=== PATIENT | female | born 1995 | race Caucasian/White ===

== ENCOUNTER 2021-04-24 09:31 | Emergency (ER) | payer OTHER ==
[2021-04-24] MEDS ORDERED: Acetaminophen 500 MG TAB ONE (10:33)
[2021-04-24] MEDS ORDERED: Dexamethasone 10 MG/ML VIAL ONE (10:33)
[2021-04-24 17:15] LABS: SARS-CoV-2 PCR by NAA Not Detected (NotDetected)
== END 2021-04-24 11:38 | disposition home or self-care (01) ==
LOC: ERS 09:31
DX: J02.9 Acute pharyngitis, unspecified (principal); J04.0 Acute laryngitis; M79.10 Myalgia, unspecified site; I48.92 Unspecified atrial flutter; Z20.822 Contact with and (suspected) exposure to COVID-19; Z79.899 Other long term (current) drug therapy
CPT/HCPCS: 87081; 87430; 96372; 99283; J1100; U0003; U0005

== ENCOUNTER 2021-07-11 13:52 | Emergency (ER) | payer OTHER ==
[2021-07-11] MEDS ORDERED: Acetaminophen 500 MG TAB ONE (16:18)
[2021-07-11] MEDS ORDERED: Ibuprofen 800 MG TAB ONE (16:18)
[2021-07-12 15:22] LABS: SARS-CoV-2 PCR by NAA DETECTED (NotDetected)
== END 2021-07-11 16:33 | disposition home or self-care (01) ==
LOC: ERS 13:52
DX: U07.1 COVID-19 (principal); F17.200 Nicotine dependence, unspecified, uncomplicated
CPT/HCPCS: 93005; U0003; U0005

== ENCOUNTER 2021-11-15 07:26 | Emergency (ER) | payer OTHER ==
[2021-11-15] MEDS ORDERED: Ondansetron PF 4 MG/2 ML Vial ONE (08:01)
[2021-11-15] MEDS ORDERED: Morphine 4 MG/ML VIAL ONE ×2 (08:01→09:17)
[2021-11-15 08:07] LABS: Bilirubin Negative (Negative); Blood, Urine Negative (Negative); Glucose, Urine (Dipstick) Negative (Negative); Ketone, Urine Negative (Negative); Leukocyte Negative (Negative); Nitrite Negative (Negative); Protein, Urine (Dipstick) Negative (Neg-Trace); Specific Gravity, Urine 1.025 (1.005-1.030); Urobilinogen 0.2 mg/dL (Less than 2)
[2021-11-15 08:08] LABS: Clarity Clear (Clear)
[2021-11-15 08:08] LABS: #Eosinphils 0.2 thou/uL (0.0-0.7); #Lymphocytes 1.9 thou/uL (1.20-3.40); #Monocytes 0.5 thou/uL (0.11-0.59); %Basophils 0.3 % (0.0-1.0); %Eosinophils 1.4 % (0.0-10.0); %Lymphocytes 16.1 % (21.0-51.0); %Neutrophils 78.2 % (42.0-75.0); Mean Corpuscular HGB CONC 32.2 g/dL (32.0-36.0); Mean Corpuscular Hemoglobin 27.1 pg (27.0-31.0); Mean Platelet Volume 8.4 fL (7.4-10.4); Platelet Count 289 thou/uL (130-400); RBC Distribution Width 13.2 % (11.5-14.5); Red Blood Cell (RBC) Count 5.18 mill/uL (4.20-5.40); White Blood Cell (WBC) Count 11.5 thou/uL (4.8-10.8)
[2021-11-15 08:09] LABS: Pregnancy Test - Urine (BHCG) Negative (Negative); Pregu Control Background? CLEAR/WHITE (CLR/WHITE); Pregu Control Bar Appear? YES (CONTROL BAR); Specific Gravity 1.025 (1.002-1.036)
[2021-11-15 08:27] LABS: ALT (SGPT) 17 U/L (8-55); AST (SGOT) 11 U/L (5-34); Alkaline Phosphatase 77 U/L (40-110); Anion Gap 11 mmol/L (10-20); BUN (Urea Nitrogen) 16 mg/dL (7.0-18.7); Bilirubin, Total 0.4 mg/dL (0.2-1.2); Calc. Creatinine Clearance 0 mL/min (70-130); Calcium 8.7 mg/dL (7.8-10.44); Carbon Dioxide 26 mmol/L (22-29); Chloride 104 mmol/L (98-107); Globulin 3.1 g/dL (2.4-3.5); Glucose 117 mg/dL (70-105); Lipase 15 U/L (8-78); Potassium 3.8 mmol/L (3.5-5.1); Protein, Total 7.1 g/dL (6.0-8.3); Sodium 137 mmol/L (136-145)
[2021-11-15] MEDS ORDERED: Ketorolac Tromethamine 30 MG/ML VIAL ONE (09:17)
[2021-11-15] MEDS ORDERED: Iopamidol-370 76% 500 ML 1 ML ONE (10:17)
== END 2021-11-15 10:38 | disposition home or self-care (01) ==
LOC: ERS 07:26
DX: N83.201 Unspecified ovarian cyst, right side (principal); I48.92 Unspecified atrial flutter; F17.200 Nicotine dependence, unspecified, uncomplicated
CPT/HCPCS: 71045; 74177; 76856; 80053; 81003; 81025; 83690; 85025; 93976; 96374; 96375; 96376; J1885; J2270; J2405

== ENCOUNTER 2023-06-03 22:32 | Emergency (ER) | payer OTHER ==
[2023-06-03] MEDS ORDERED: Ketorolac Tromethamine 30 MG/ML VIAL ONE (22:41)
[2023-06-03 23:02] LABS: #Eosinphils 0.4 thou/uL (0.0-0.7); #Monocytes 0.8 thou/uL (0.11-0.59); #Neutrophils 7.8 thou/uL (1.40-6.50); %Basophils 0.3 % (0.0-1.0); %Eosinophils 2.8 % (0.0-10.0); %Lymphocytes 28.4 % (21.0-51.0); %Monocytes 6.2 % (0.0-10.0); %Neutrophils 61.8 % (42.0-75.0); Hematocrit 43.4 % (36.0-47.0); Mean Corpuscular HGB CONC 32.3 g/dL (32.0-36.0); Mean Corpuscular Hemoglobin 27.4 pg (27.0-31.0); Mean Corpuscular Volume 84.9 fl (78.0-98.0); Platelet Count 342 10x3/uL (130-400); RBC Distribution Width 13.7 % (11.5-14.5); Red Blood Cell (RBC) Count 5.11 mill/uL (4.20-5.40); White Blood Cell (WBC) Count 12.6 10x3/uL (4.8-10.8)
[2023-06-03 23:25] LABS: ALT (SGPT) 22 U/L (8-55); AST (SGOT) 14 U/L (5-34); Alkaline Phosphatase 95 U/L (40-110); Anion Gap 13 mmol/L (10-20); BUN (Urea Nitrogen) 20 mg/dL (7.0-18.7); Bilirubin, Total 0.6 mg/dL (0.2-1.2); Calc. Creatinine Clearance 0 mL/min (70-130); Calcium 9.2 mg/dL (7.8-10.44); Carbon Dioxide 29 mmol/L (22-29); Chloride 103 mmol/L (98-107); Estimated GFR 68; Globulin 3.3 g/dL (2.4-3.5); Glucose 94 mg/dL (70-105); Potassium 3.4 mmol/L (3.5-5.1); Protein, Total 7.3 g/dL (6.0-8.3); Sodium 142 mmol/L (136-145)
[2023-06-03 23:28] LABS: Troponin I Less than 0.010 ng/mL (< 0.028)
== END 2023-06-03 23:56 | disposition home or self-care (01) ==
LOC: ERS 22:32
DX: R07.9 Chest pain, unspecified (principal); G51.0 Bell's palsy; D72.829 Elevated white blood cell count, unspecified; F17.200 Nicotine dependence, unspecified, uncomplicated
CPT/HCPCS: 70450; 71045; 80053; 84484; 85025; 93005; 94760; 96374; J1885